=== PATIENT | female | born 1980 | race Caucasian/White ===

== ENCOUNTER 2019-08-08 18:45 | Emergency (ER) | payer OTHER ==
--- NOTE | 2019-08-08 20:55 | RAD REPORT ---
EXAM DESCRIPTION: RAD - Chest Pa And Lat (2 Views) - 08/08/2019 8:24 pm CLINICAL HISTORY: Cough;Congestion COMPARISON: No comparisons TECHNIQUE: Frontal and lateral views of the chest were obtained. FINDINGS: The lungs are normal volume. Airspace opacification is present in the anterior left lung b ase. This abuts the fissure. The lingula pneumonia shows no cavitation. Heart size is normal and garret tral vasculature is within normal limits. No pleural effusion or pneumothorax seen. No acute bony f inding noted. No aortic abnormality. IMPRESSION: Anterior left lung base pneumonia
--- NOTE | 2019-08-08 21:07 | ER ---
Nurse's Notes [facility] Name: Nelsy Joaquin Age: 39 yrs Sex: Female : 1980 Arrival Date: 08/08/2019 Time: 19:29 Bed 12 Private MD: Diagnosis: Pneumonia, unspecified organism Presentation: 08/08 19:30 Presenting complaint: Patient states: "I have been sick for 2 weeks, my kids have Flu ca1 B, my has Flu A and bronchitis. My youngest also has pneumonia. I have been having a hard time breathing and coughing really hard" Denies fever. Reports nausea. Transition of care: patient was not received from another setting of care. Onset of symptoms was August 08, 2019. Risk Assessment: Do you want to hurt yourself or someone else? Patient reports no desire to harm self or others. Initial Sepsis Screen: Does the patient meet any 2 criteria? No. Patient's initial sepsis screen is negative. Does the patient have a suspected source of infection? No. Patient's initial sepsis screen is negative. Care prior to arrival: None. 19:30 Method Of Arrival: Ambulatory ca1 19:30 Acuity: PIERCE 4 ca1 Triage Assessment: 21:30 Pain: Denies pain. 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 - Coronavirus screen:: The patient has NOT traveled to [place], [place], or [place] in the past 14 days. The patient has NOT had contact with known/suspected case of Coronavirus?. - Social history:: Smoking status: Patient denies any tobacco usage or history of. - Ebola Screening: : Patient negative for fever greater than or equal to 101.5 degrees Fahrenheit, and additional compatible Ebola Virus Disease symptoms Patient denies exposure to infectious person Patient denies travel to an Ebola-affected area in the 21 days before illness onset No symptoms or risks identified at this time. Screenin:10 Abuse screen: Denies threats or abuse. Denies injuries from another. Nutritional ca1 screening: No deficits noted. Tuberculosis screening: No symptoms or risk factors identified. Fall Risk None identified. Assessment: 20:10 General: Appears in no apparent distress. comfortable, Behavior is calm, cooperative, ca1 appropriate for age. Neuro: Level of Consciousness is awake, alert, obeys commands, Oriented to person, place, time, situation, Appropriate for age. Respiratory: Reports cough that is Airway is patent Respiratory effort is even, unlabored, Respiratory pattern is regular, symmetrical, Breath sounds are clear bilaterally. EENT: Reports nasal congestion. Derm: Skin is intact, is healthy with good turgor, Skin is pink, warm \\T\\ dry. Musculoskeletal: Circulation, motion, and sensation intact. Capillary refill < 3 seconds, Range of motion:. 21:44 Reassessment: Patient appears in no apparent distress at this time. Patient is alert, mg2 oriented x 3, equal unlabored respirations, skin warm/dry/pink. Vital Signs: 19:31 BP 159 / 81; Pulse 84; Resp 16 S; Temp 98.7(O); Pulse Ox 99% on R/A; Weight 104.33 kg ca1 (R); Height 5 ft. 1 in. (154.94 cm) (R); 21:44 BP 128 / 90; Pulse 85; Resp 18; Temp 98.2(O); Pulse Ox 100% ; mg2 19:31 Body Mass Index 43.46 (104.33 kg, 154.94 cm) ca1 ED Course: 19:29 Patient arrived in ED. ds1 19:30 Triage completed. ca1 19:31 Arm band placed on right wrist. ca1 19:39 Joy Faulkner FNP-C [facility]. kb 19:39 James Raman MD is Attending Physician. kb 20:09 Love Drake, MARIVEL is Primary Nurse. ca1 20:10 Patient has correct armband on for positive identification. Bed in low position. Call ca1 light in reach. Side rails up X 1. 20:10 No provider procedures requiring assistance completed. Patient did not have IV access ca1 during this emergency room visit. 20:23 Chest Pa And Lat (2 Views) XRAY In Process Unspecified. EDMS Administered Medications: 21:17 Drug: Zithromax 500 mg Route: PO; mg2 21:43 Follow up: Response: No adverse reaction; Medication administered at discharge. mg2 21:17 Drug: predniSONE 40 mg Route: PO; mg2 21:43 Follow up: Response: No adverse reaction; Medication administered at discharge. mg2 21:18 Drug: Albuterol - atroVENT (3:1) (2.5 mg - 0.5 mg) 3 ml Route: Nebulizer; mg2 21:44 Follow up: Response: No adverse reaction; Medication administered at discharge. mg2 21:18 Drug: Rocephin (cefTRIAXone) 1 grams Route: IM; Site: left gluteus; mg2 21:43 Follow up: Response: No adverse reaction; Medication administered at discharge. mg2 Outcome: 21:07 Discharge ordered by . clifford 21:44 Discharged to home ambulatory. mg2 21:44 Condition: stable 21:44 Discharge instructions given to patient, Instructed on discharge instructions, follow up and referral plans. Demonstrated understanding of instructions, follow-up care, medications, Prescriptions given X 3. 21:45 Patient left the ED. mg2 Signatures: Dispatcher [employer] EDMS Joy Faulkner, MENDYC JULIAN-Shereen Lilly ds1 Mikal Arriola, MARIVEL RN mg2 Love Drake RN RN ca1
--- NOTE | 2019-08-08 21:08 | EDPHYS ---
Physician Documentation [facility] Name: Nelsy Joaquin Age: 39 yrs Sex: Female : 1980 Arrival Date: 08/08/2019 Time: 19:29 Bed 12 Private MD: ED Physician James Raman HPI: 08/08 21:04 This 39 yrs old Female presents to ER via Ambulatory with complaints of Flu kb Symptoms. 21:04 The patient or guardian reports cough, that is intermittent, described as moderate, kb with productive sputum, flu symptoms, myalgias. Onset: The symptoms/episode began/occurred 2 week(s) ago. Severity of symptoms: At their worst the symptoms were moderate, in the emergency department the symptoms are unchanged. Modifying factors: The symptoms are alleviated by nothing, the symptoms are aggravated by nothing. Associated signs and symptoms: The patient has no apparent associated signs or symptoms. The patient has not experienced similar symptoms in the past. The patient has not recently seen a physician. Pt reports her kids and all have the flu at home, started going around 2 weeks ago. Pt developed the same symptoms, but let it go. Came in tonight because symptoms are not getting better. Reports her youngest son has flu B and was diagnosed with pneumonia today. 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 - Coronavirus screen:: The patient has NOT traveled to [place], [place], or [place] in the past 14 days. The patient has NOT had contact with known/suspected case of Coronavirus?. - Social history:: Smoking status: Patient denies any tobacco usage or history of. - Ebola Screening: : Patient negative for fever greater than or equal to 101.5 degrees Fahrenheit, and additional compatible Ebola Virus Disease symptoms Patient denies exposure to infectious person Patient denies travel to an Ebola-affected area in the 21 days before illness onset No symptoms or risks identified at this time. ROS: 21:03 Neck: Negative for injury, pain, and swelling, Cardiovascular: Negative for chest pain, kb palpitations, and edema, Abdomen/GI: Negative for abdominal pain, nausea, vomiting, diarrhea, and constipation, Back: Negative for injury and pain, MS/Extremity: Negative for injury and deformity, Skin: Negative for injury, rash, and discoloration, Neuro: Negative for headache, weakness, numbness, tingling, and seizure. 21:03 Constitutional: Positive for malaise. 21:03 ENT: Positive for rhinorrhea, sinus congestion. 21:03 Respiratory: Positive for cough, with no reported sputum. Exam: 21:04 Constitutional: This is a well developed, well nourished patient who is awake, alert, kb and in no acute distress. Head/Face: Normocephalic, atraumatic. ENT: Nares patent. No nasal discharge, no septal abnormalities noted. Tympanic membranes are normal and external auditory canals are clear. Oropharynx with no redness, swelling, or masses, exudates, or evidence of obstruction, uvula midline. Mucous membranes moist. Neck: Trachea midline, no thyromegaly or masses palpated, and no cervical lymphadenopathy. Supple, full range of motion without nuchal rigidity, or vertebral point tenderness. No Meningismus. Chest/axilla: Normal chest wall appearance and motion. Nontender with no deformity. No lesions are appreciated. Cardiovascular: Regular rate and rhythm with a normal S1 and S2. No gallops, murmurs, or rubs. Normal PMI, no JVD. No pulse deficits. Abdomen/GI: Soft, non-tender, with normal bowel sounds. No distension or tympany. No guarding or rebound. No evidence of tenderness throughout. Back: No spinal tenderness. No costovertebral tenderness. Full range of motion. Skin: Warm, dry with normal turgor. Normal color with no rashes, no lesions, and no evidence of cellulitis. MS/ Extremity: Pulses equal, no cyanosis. Neurovascular intact. Full, normal range of motion. Neuro: Awake and alert, GCS 15, oriented to person, place, time, and situation. Cranial nerves II-XII grossly intact. Motor strength 5/5 in all extremities. Sensory grossly intact. Cerebellar exam normal. Normal gait. 21:04 Respiratory: the patient does not display signs of respiratory distress, Respirations: normal, symetrical, Breath sounds: rhonchi, that are mild, are heard in the left posterior lower lobe. Vital Signs: 19:31 BP 159 / 81; Pulse 84; Resp 16 S; Temp 98.7(O); Pulse Ox 99% on R/A; Weight 104.33 kg ca1 (R); Height 5 ft. 1 in. (154.94 cm) (R); 21:44 BP 128 / 90; Pulse 85; Resp 18; Temp 98.2(O); Pulse Ox 100% ; mg2 19:31 Body Mass Index 43.46 (104.33 kg, 154.94 cm) ca1 MDM: 19:59 Patient medically screened. kb 20:28 Data reviewed: vital signs, nurses notes. Data interpreted: Pulse oximetry: on room air kb is 99 %. Interpretation: normal. 21:02 Counseling: I had a detailed discussion with the patient and/or guardian regarding: the kb historical points, exam findings, and any diagnostic results supporting the discharge/admit diagnosis, lab results, radiology results, the need for outpatient follow up, a family practitioner, to return to the emergency department if symptoms worsen or persist or if there are any questions or concerns that arise at home. 21:02 ED course: Pt is nontoxic appearing, no fever, no shortness of breath. Will discharge kb home with antibiotics for pneumonia. Return precautions given. Verbal understanding received. . 08/08 19:32 Order name: Flu; Complete Time: 20:00 ca1 08/08 19:32 Order name: Strep; Complete Time: 20:00 ca1 08/08 19:39 Order name: Chest Pa And Lat (2 Views) XRAY; Complete Time: 21:01 kb 08/08 20:05 Order name: Throat Culture EDMS Administered Medications: 21:17 Drug: Zithromax 500 mg Route: PO; mg2 21:43 Follow up: Response: No adverse reaction; Medication administered at discharge. mg2 21:17 Drug: predniSONE 40 mg Route: PO; mg2 21:43 Follow up: Response: No adverse reaction; Medication administered at discharge. mg2 21:18 Drug: Albuterol - atroVENT (3:1) (2.5 mg - 0.5 mg) 3 ml Route: Nebulizer; mg2 21:44 Follow up: Response: No adverse reaction; Medication administered at discharge. mg2 21:18 Drug: Rocephin (cefTRIAXone) 1 grams Route: IM; Site: left gluteus; mg2 21:43 Follow up: Response: No adverse reaction; Medication administered at discharge. mg2 Disposition: 08/09 06:42 Co-signature as Attending Physician, James Raman MD I agree with the assessment and smita plan of care. Disposition: 08/08/19 21:07 Discharged to Home. Impression: Pneumonia, unspecified organism. - Condition is Stable. - Discharge Instructions: Community-Acquired Pneumonia, Adult, [id number]. - Prescriptions for Prednisone 20 mg Oral Tablet - take 1 tablet by ORAL route once daily for 5 days; 5 tablet. Albuterol Sulfate 90 mcg/actuation - inhale 1-2 puff by INHALATION route every 4-6 hours; 1 Inhaler. Zithromax 500 mg Oral Tablet - take 1 tablet by ORAL route once daily for 5 days; 5 tablet. - Medication Reconciliation Form, Thank You Letter, Antibiotic Education, Prescription Opioid Use form. - Follow up: Emergency Department; When: As needed; Reason: Worsening of condition. Follow up: Private Physician; When: 2 - 3 days; Reason: Recheck today's complaints, Continuance of care, Re-evaluation by your physician. Signatures: Dispatcher [employer] EDMS Joy Faulkner, SEXUAL ASSAULT SOCIAL WORKER-C SEXUAL ASSAULT SOCIAL WORKER-James Gotit MD MD cha Gardose, Michele, RN RN [facility] Love Drake RN RN [facility] Corrections: (The following items were deleted from the chart) 08/08 21:45 21:07 08/08/2019 21:07 Discharged to Home. Impression: Pneumonia, unspecified organism. mg2 Condition is Stable. Forms are Medication Reconciliation Form, Thank You Letter, Antibiotic Education, Prescription Opioid Use. Follow up: Emergency Department; When: As needed; Reason: Worsening of condition. Follow up: Private Physician; When: 2 - 3 days; Reason: Recheck today's complaints, Continuance of care, Re-evaluation by your physician. kb
[2019-08-08] MEDS ORDERED: AZITHROMYCIN 250 MG TAB ONE (21:10)
[2019-08-08] MEDS ORDERED: IPRATROPIUM BROM 0.5MG/2.5ML ONE (21:11)
[2019-08-08] MEDS ORDERED: CEFTRIAXONE 1000 MG/VIAL ONE (21:11)
[2019-08-08] MEDS ORDERED: predniSONE 20 MG TAB ONE (21:11)
[2019-08-08] MEDS ORDERED: ALBUTEROL 2.5 MG/3 ML NEB SOL ONE (21:11)
[2019-08-08] MEDS ORDERED: WATER FOR INJ,STERILE 10 ML ONE (21:11)
[2019-08-08 23:07] VITALS: O2SAT 100
[2019-08-08 23:15] VITALS: BP 122/60; TEMP 98
== END 2019-08-08 21:45 | disposition home or self-care (01) ==
LOC: ER 18:45
DX: J18.9 Pneumonia, unspecified organism (principal)
CPT/HCPCS: 87070; 87081; 87804 ×2; 71046; 94640; 96372; 99284; J7512

== ENCOUNTER 2020-12-05 00:17 | Emergency (ER) | payer OTHER ==
--- OUTSIDE RECORDS SUMMARY | 2020-12-05 00:20 | XMS REPORT | Continuity of Care Document ---
:[address] [facility] t Address [address] [place] [address] Care Team Providers Name Role Phone Ji VICENTE, Alize Attending Clinician Problems This patient has no known problems. Allergies, Adverse Reactions, Alerts This patient has no known allergies or adverse reactions. Medications This patient has no known medications. Procedures This patient has no known procedures. Encounters Start End Encounter Admission Attending Care Care Encounter Source Date/Time Date/Time Type Type Clinicians Facility Department ID 2020-11-10 2020-11-10 Office J[facility] Workman [id number] 13:13:30 13:45:21 Visit [facility] [id number] [place] [id number] [place] [phone] nal 044 Office [address] [facility] Results This patient has no known results.
--- NOTE | 2020-12-05 03:45 | ER ---
Nurse's Notes [facility] Name: Nelsy Joaquin Age: 40 yrs Sex: Female : 1980 Arrival Date: 12/05/2020 Time: 00:58 Bed Waiting Private MD: Diagnosis: Presentation: 12/05 02:17 Chief complaint: Patient states: had a horse fly bit her left leg yesterday and was iw diagnosed with cellulitis at urgent care yesterday , could not get prescription filled because of her insurance, redness has spread through her entire left calf , hot to touch and swollen. Coronavirus screen: At this time, the client does not indicate any symptoms associated with coronavirus-19. Ebola Screen: Patient negative for fever greater than or equal to 101.5 degrees Fahrenheit, and additional compatible Ebola Virus Disease symptoms Patient denies exposure to infectious person. Patient denies travel to an Ebola-affected area in the 21 days before illness onset. No symptoms or risks identified at this time. Initial Sepsis Screen: Does the patient meet any 2 criteria? No. Patient's initial sepsis screen is negative. Does the patient have a suspected source of infection? No. Patient's initial sepsis screen is negative. Risk Assessment: Do you want to hurt yourself or someone else? Patient reports no desire to harm self or others. Onset of symptoms was December 04, 2020. 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 Vital Signs: 02:17 BP 165 / 99; Pulse 72; Resp 16; Temp 96.9; Pulse Ox 100% on R/A; Weight 108.86 kg; iw Height 5 ft. 1 in. (154.94 cm); 02:17 Body Mass Index 45.35 (108.86 kg, 154.94 cm) iw ED Course: 00:58 Patient arrived in ED. iw 02:19 Triage completed. iw 02:19 Arm band placed on. iw Administered Medications: No medications were administered Outcome: 03:44 Patient left the ED. iw Signatures: Trina Hernandez RN RN iw Corrections: (The following items were deleted from the chart) 02:21 02:17 Chief complaint: Patient states: had a horse fly bit her left leg yesterday and iw was diagnosed with cellulitis at urgent care yesterday , could not get prescription filled because of her insurance iw
[2020-12-05 03:53] VITALS: BP 165/99; TEMP 96.9; O2SAT 100
== END 2020-12-05 03:44 | disposition left against medical advice (07) ==
LOC: ER 00:17
DX: L03.116 Cellulitis of left lower limb (principal); F17.210 Nicotine dependence, cigarettes, uncomplicated; F32.9 Major depressive disorder, single episode, unspecified; F41.9 Anxiety disorder, unspecified; Z53.21 Procedure and treatment not carried out due to patient leaving prior to being seen by health care provider
CPT/HCPCS: 99281

== ENCOUNTER 2025-03-26 10:34 | Emergency (ER) | payer OTHER, SELFPAY ==
--- OUTSIDE RECORDS SUMMARY | 2025-03-26 10:38 | XMS REPORT | Continuity of Care Document ---
Author Name Unknown Address [address] [facility] [address] [place] [address] [facility] Address [address] [facility] [place] [address] Care Team Providers Care Application Support Engineer Name Role Phone ALLY FANG Primary Care Physician Unavailable ALLY FANG Attending Clinician Sparkle curryilaAlly Way MD Attending Clinician Doctor Unassigned, Ivey Attending Clinician U navailANABEL Martin Attending Clinician Unavaila ANABEL Al Attending Clinician Unavaila ble Lab, Ang - Db Attending Clinician Unavailable KATALINA BENITO Attending Clinician Unavailable NEIL HUGHES Attending Clinician UnavailNeil Martinez MD Attending Clinician + [phone] [facility] Attending Clinician Un available Choco Hope Attending Clinician + [phone] CHOCO SHELLEY Attending Clinician Unavailab Maryanne Colindres Attending Clinician + Katalina Benito PA-C Attending Clinician [phone] TENISHA MILNER Attending Clinician Unavailable Pob, Adc Lab Main Attending Clinician Unavailabl e Lab, Adc Fam Pob I Attending Clinician UnavailALLY Santoro Admitting Clinician Sparkle vailable Payers Payer Name Policy Type Policy Number Effective Date Expirati on Date Source [facility] [id number] 2023 00:00:00 [facility] STAR [id number] 2022 00:00:00 [facility] SARAH SPRINGER [id number] 2020 00:00:00 Problems Condition Name Condition Details Condition Category Status Onset Date Resolution Date Last Treatment Date Treating Clinician Comments Source Insect bite of right lower leg, initial encounter Insect bite of right lower leg, initial encounter Disease Active 12-04 00:00: 00 [facility] Cellulitis and abscess of left lower extremity Cellulitis and abscess of left lower extremity Disease Active 12-04 00:00: 00 [facility] Metabolic syndrome Metabolic syndrome Disease Active 10-07 00:00: 00 [facility] Chronic fatigue Chronic fatigue Disease Active 2019-07 00:00: 00 [facility] Chronic anxiety Chronic anxiety Disease Active 2019-07 00:00: 00 [facility] Chronic depression Chronic depression Disease Active 2019-07 00:00: 00 [facility] Morbid obesity with body mass index of 40.0-49.9 Morbid obesity with body mass index of 40.0-49.9 Disease Active 2019-07 00:00: 00 [facility] Morbid obesity with body mass index of 40.0-49.9 Morbid obesity with body mass index of 40.0-49.9 Disease Active 2019-07 00:00: 00 [facility] Allergies, Adverse Reactions, Alerts Allergy Name Allergy Type Status Severity Reaction(s) Onset Date Inactive Date Treating Clinician Comments Source NO KNOWN ALLERGIE S Drug Class Active [facility] Social History Social Habit Start Date Stop Date Quantity Comments Source History of tobacco use Cigarette Smoker [facility] Alcohol intake 2022-09-28 00:00:00 2022-09-28 00:00:00 .14 /d [facility] Exposure to SARS-CoV-2 (event) 2022-08-13 00:00:00 2022-08-23 11:23:00 Not sure [facility] Cigarettes smoked current (pack per day) - Reported 2022-08-23 00:00:00 2022-08-23 00:00:00 [facility] Tobacco use and exposure 2022-08-23 00:00:00 2022-08-23 00:00:00 Smokeless tobacco non-user [facility] Tobacco Comment 2022-08-23 00:00:00 2022-08-23 00:00:00 socially [facility] Sex Assigned At 1980 00:00:00 1980 00:00:00 [facility] Smoking Status Start Date Stop Date Source Unknown if ever smoked Unive [facility] Ex-smoker 2022-08-23 00:00:00 2022-08[facility] Current some day smoker 2020-05-20 00:00:00 [facility] Medications Ordered Medication Name Filled Medication Name Start Date Stop Date Current Medication? Ordering Clinician Indication Dosage Frequency Signature (SIG) Comments Components Source ferrous sulfate 325 mg (65 mg iron) tablet 09-05 00:00: 00 Yes [id number] 325mg Take 1 tablet by mouth in the morning. [facility] ferrous sulfate 325 mg (65 mg iron) tablet 08-25 00:00: 00 Yes [id number] 325mg Take 1 tablet by mouth in the morning. [facility] calcium carbonate/v itamin D3 (CALCIUM CHEW ORAL) 08-23 11:54: 54 Yes Take by mouth daily. [facility] MULTIVITAMI N ORAL 08-23 11:54: 53 Yes 1{tbl} Take 1 tablet by mouth daily. [facility] METFORMIN 500 mg tablet 12-31 00:00: 00 08-23 00:00 :00 No [id number] TAKE 1 TABLET BY MOUTH TWICE DAILY WITH MEALS [facility] buPROPion 100 mg tablet 12-31 00:00: 00 08-23 00:00 :00 No [id number] 100mg Take 1 tablet by mouth daily. [facility] FLUOXETINE 20 mg capsule 12-31 00:00: 00 08-23 00:00 :00 No [id number] 20mg TAKE 1 CAPSULE BY MOUTH DAILY [facility] clindamycin 300 mg capsule 12-05 00:00: 00 12-13 04:59 :00 No [id number] 300mg Take 1 capsule by mouth 4 (four) times daily for 7 days. [facility] doxycycline 100 mg EC tablet 12-04 00:00: 00 12-05 00:00 :00 No [id number] 100mg Take 1 tablet by mouth 2 (two) times daily for 10 days. [facility] buPROPion 100 mg tablet 11-10 00:00: 00 12-31 00:00 :00 No [id number] 100mg Take 1 tablet by mouth daily. [facility] FLUoxetine 20 mg capsule 11-10 00:00: 12-31 00:00 :00 No [id number] 20mg Take 1 capsule by mouth daily. [facility] triamcinolo ne acetonide 0.1 % ointment 09-29 00:00: 00 08-23 00:00 :00 No [id number] Apply to area(s) 2 (two) times daily. [facility] metFORMIN 500 mg tablet 09-29 00:00: 00 12-31 00:00 :00 No [id number] 500mg Take 1 tablet by mouth 2 (two) times daily with meals. [facility] buPROPion 100 mg tablet 09-29 00:00: 00 11-10 00:00 :00 No [id number] 100mg Take 1 tablet by mouth 2 (two) times daily. [facility] FLUoxetine 20 mg capsule 09-29 00:00: 00 11-10 00:00 :00 No [id number] 20mg Take 1 capsule by mouth daily. DOSE INCREASE. [facility] FLUOXETINE 10 mg capsule 09-07 00:00: 00 09-29 00:00 :00 No [id number] 10mg TAKE 1 CAPSULE BY MOUTH DAILY [facility] norgestimat e-ethinyl estradioL 0.25-35 mg-mcg per tablet 08-06 00:00: 00 08-23 00:00 :00 No [id number] 1{tbl} Take 1 tablet by mouth daily. [facility] FLUoxetine 10 mg capsule 2019-07 00:00: 00 09-07 00:00 :00 No [id number] 10mg Take 1 capsule by mouth daily. [facility] norgestimat e-ethinyl estradioL 0.25-35 mg-mcg per tablet 2019-07 00:00: 00 08-06 00:00 :00 No [id number] 1{tbl} Take 1 tablet by mouth daily. [facility] Vital Signs Vital Name Observation Time Observation Value Comments S venancio Systolic blood pressure 2022-08-23 17:40:00 125 mm[Hg] [facility] Diastolic blood pressure 2022-08-23 17:40:00 84 mm[Hg] [facility] Heart rate 2022-08-23 17:40:00 54 /min [facility] Body temperature 2022-08-23 17:40:00 36.72 Violeta [facility] Respiratory rate 2022-08-23 17:40:00 20 /min [facility] Body height 2022-08-23 17:40:00 154.9 cm [facility] Body weight 2022-08-23 17:40:00 95.437 kg [facility] BMI 2022-08-23 17:40:00 39.75 kg/m2 [facility] Oxygen saturation in Arterial blood by Pulse oximetry 2022-08-23 17:40:00 100 /min [facility] Systolic blood pressure 2020-12-04 22:07:00 141 mm[Hg] [facility] Diastolic blood pressure 2020-12-04 22:07:00 88 mm[Hg] [facility] Heart rate 2020-12-04 22:04:00 75 /min [facility] Body temperature 2020-12-04 22:04:00 37 Violeta [facility] Respiratory rate 2020-12-04 22:04:00 17 /min [facility] Body height 2020-12-04 22:04:00 154.9 cm [facility] Body weight 2020-12-04 22:04:00 108.863 kg [facility] BMI 2020-12-04 22:04:00 45.35 kg/m2 [facility] Oxygen saturation in Arterial blood by Pulse oximetry 2020-12-04 22:04:00 98 /min [facility] Systolic blood pressure 2020-11-10 18:23:00 134 mm[Hg] [facility] Diastolic blood pressure 2020-11-10 18:23:00 80 mm[Hg] [facility] Heart rate 2020-11-10 18:23:00 63 /min Unive [facility] Body temperature 2020-11-10 18:23:00 37.06 Violeta [facility] Body height 2020-11-10 18:23:00 154.9 cm [facility] Body weight 2020-11-10 18:23:00 110.224 kg [facility] BMI 2020-11-10 18:23:00 45.91 kg/m2 [facility] Systolic blood pressure 2020-11-10 18:23:00 134 mm[Hg] [facility] Diastolic blood pressure 2020-11-10 18:23:00 80 mm[Hg] [facility] Heart rate 2020-11-10 18:23:00 63 /min Unive [facility] Body temperature 2020-11-10 18:23:00 37.06 Violeta [facility] Body height 2020-11-10 18:23:00 154.9 cm [facility] Body weight 2020-11-10 18:23:00 110.224 kg [facility] BMI 2020-11-10 18:23:00 45.91 kg/m2 [facility] Systolic blood pressure 2020-09-29 19:16:00 127 mm[Hg] [facility] Diastolic blood pressure 2020-09-29 19:16:00 81 mm[Hg] [facility] Heart rate 2020-09-29 19:16:00 62 /min [facility] Body temperature 2020-09-29 19:16:00 36.67 Violeta [facility] Body height 2020-09-29 19:16:00 154.9 cm [facility] Body weight 2020-09-29 19:16:00 112.038 kg [facility] BMI 2020-09-29 19:16:00 46.67 kg/m2 [facility] Systolic blood pressure 2020-06-10 03:16:00 146 mm[Hg] [facility] Diastolic blood pressure 2020-06-10 03:16:00 77 mm[Hg] [facility] Heart rate 2020-06-10 03:16:00 68 /min [facility] Body temperature 2020-06-10 03:16:00 36.11 Violeta [facility] Body height 2020-06-10 03:16:00 154.9 cm [facility] Body weight 2020-06-10 03:16:00 108.863 kg [facility] BMI 2020-06-10 03:16:00 45.35 kg/m2 [facility] Systolic blood pressure 2020-06-09 16:27:00 150 mm[Hg] [facility] Diastolic blood pressure 2020-06-09 16:27:00 77 mm[Hg] [facility] Heart rate 2020-06-09 16:27:00 67 /min Unive [facility] Body temperature 2020-06-09 16:17:00 36.11 Violeta [facility] Body weight 2020-06-09 16:17:00 108.863 kg [facility] BMI 2020-06-09 16:17:00 45.35 kg/m2 [facility] Systolic blood pressure 2020-05-20 15:17:00 125 mm[Hg] [facility] Diastolic blood pressure 2020-05-20 15:17:00 67 mm[Hg] [facility] Heart rate 2020-05-20 15:17:00 63 /min [facility] Body temperature 2020-05-20 15:17:00 37.11 Violeta [facility] Respiratory rate 2020-05-20 15:17:00 18 /min [facility] Body height 2020-05-20 15:17:00 154.9 cm [facility] Body weight 2020-05-20 15:17:00 107.593 kg [facility] BMI 2020-05-20 15:17:00 44.82 kg/m2 [facility] Procedures Procedure Date / Time Performed Performing Clinicia n Source ASSIGNMENT OF BENEFITS 2022-09-28 13:27:56 Docto r Unassigned, Ivey [facility] CONSENT/REFUSAL FOR DIAGNOSIS AND TREATMENT 2022-08-23 17:24:14 Doctor Unassigned, Ivey [facility] ASSIGNMENT OF BENEFITS 2020-05-20 14:59:17 Docto r Unassigned, Ivey [facility] POCT TEST 2020-05-20 00:00:00 Hellen Benito [facility] Encounters Start Date/Time End Date/Time Encounter Type Admission Type Attending Clinicians Care Facility Care Department Encounter ID Source 2024-07-17 16:18:33 2024-07-17 16:18:33 Outpatient [facility] [id number] Norman Duque 2024-02-07 09:40:00 2024-02-07 09:40:00 Outpatient R ALLY FANG [facility] [id number] [facility] 2024-02-01 10:20:00 2024-02-01 10:20:00 Outpatient R ALLY FANG [facility] [id number] [facility] 2022-09-28 08:29:25 2022-09-28 23:59:00 Outpatient R ALLY FANG [facility] [id number] [facility] 2022-09-28 08:29:25 2022-09-28 23:59:00 Hospital Encounter Ally Fang [facility] [id number] 350.1.13.10 4.2.7.2.686 [id number] [facility] 2022-09-28 00:00:00 2022-09-28 00:00:00 Orders Only Doctor Unassigned, Ivey [facility] 1.2840.114 350.1.13.10 4.2.7.2.686 [id number] [facility] 2022-09-05 00:00:00 2022-09-05 00:00:00 Telephone Ally Fang [facility] 1.84.114 350.1.13.10 4.2.7.2.686 [id number] [facility] 2022-08-25 00:00:00 2022-08-25 00:00:00 Case Management Ally Fang [facility] 1.840.114 350.1.13.10 4.2.7.2.686 [id number] [facility] 2022-08-23 12:15:00 2022-08-23 12:15:00 Orthotic And Prosthetic Technician Visit Lab, Ang - Db Ally Fang [facility] 1..840.114 350.1.13.10 4.2.7.2.686 [id number] [facility] 2022-08-23 11:30:00 2022-08-23 11:58:29 Outpatient R ALLY FANG [facility] [id number] [facility] 2022-08-23 11:30:00 2022-08-23 11:58:29 Office Visit Ally Fang [facility] 1.2840.114 350.1.13.10 4.2.7.2.686 [id number] [facility] 2022-08-23 00:00:00 2022-08-23 00:00:00 Orders Only Doctor Unassigned, Ivey [facility] 1.84.114 350.1.13.10 4.2.7.2.686 [id number] [facility] 2021-05-20 10:00:00 2021-05-20 10:00:00 Outpatient R THONG KATALINA [facility] [id number] [facility] 2021-02-11 13:15:00 2021-02-11 13:15:00 Outpatient R NEIL HUGHES [facility] [id number] [facility] 2020-12-30 00:00:00 2020-12-30 00:00[facility] .84.114 350.1.13.10 4.2.7.2.686 [id number] [facility] 2020-12-30 00:00:00 2020-12-30 00:00:00 [facility] 1.84.114 350.1.13.10 4.2.7.2.686 [id number] [facility] 2020-12-04 16:47:32 2020-12-04 18:47:29 Urgent Care Provider, [facility] Choco Shelley [facility] .84.114 350.1.13.10 4.2.7.2.686 [id number] [facility] 2020-12-04 17:00:00 2020-12-04 17:00:00 Outpatient CHOCO CASTRO [facility] [id number] [facility] 2020-12-04 00:00:00 2020-12-04 00:00:00 Telephone Maryanne Christianson [facility] 1.84.114 350.1.13.10 4.2.7.2.686 [id number] [facility] 2020-12-04 00:00:00 2020-12-04 00:00:00 Telephone Maryanne Christianson [facility] Carbajal 1.2.840.114 350.1.13.10 4.2.7.2.686 [id number] [facility] 2020-11-10 13:13:30 2020-11-10 13:45:21 [facility] 1.84.114 350.1.13.10 4.2.7.2.686 [id number] [facility] 2020-11-10 13:13:30 2020-11-10 13:45:21 Office Visit Neil Hughes [facility] [address] 1..114 350.1.13.10 4.2.7.2.686 [id number] 2020-11-10 13:15:00 2020-11-10 13:15:00 Outpatient R SAULKEISHA HANSONCRISTI [facility] [id number] [facility] 2020-10-05 00:00:00 2020-10-05 00:00:00 Katailna Mac [facility] Building 1.2840.114 350.1.13.10 4.2.7.2.686 [id number] [facility] 2020-09-29 13:53:32 2020-09-29 15:04:31 Office Visit Neil Hughes [facility] 1.2840.114 350.1.13.10 4.2.7.2.686 [id number] [facility] 2020-09-29 14:00:00 2020-09-29 14:00:00 Outpatient R NEIL HUGHES [facility] [id number] [facility] 2020-09-28 14:00:00 2020-09-28 14:00:00 Outpatient R KATALINA BENITO [facility] [id number] [facility] 2020-09-22 18:00:00 2020-09-22 18:00:00 Outpatient R TENISHA MILNER [facility] [id number] [facility] 2020-09-17 11:00:00 2020-09-17 11:00:00 Outpatient R THONG KATALINA [facility] [id number] [facility] 2020-09-07 00:00:00 2020-09-07 00:00:00 Refill Neil Hughes [facility] 1.2.840.114 350.1.13.10 4.2.7.2.686 [id number] [facility] 2020-08-06 00:00:00 2020-08-06 00:00:00 Telephone ThongKatalina [facility] Building 1.2.840.114 350.1.13.10 4.2.7.2.686 [id number] [facility] 2020-07-20 13:00:00 2020-07-20 13:00:00 Outpatient R NEIL HUGHES [facility] [id number] [facility] 2020-06-20 08:13:09 2020-06-20 08:28:09 Orthotic And Prosthetic Technician Visit Pob, Adc Lab Main Neil Hughes [facility] Building 1.2.840.114 350.1.13.10 4.2.7.2.686 [id number] [facility] 2020-06-20 08:00:00 2020-06-20 08:00:00 Outpatient NEIL BROWNING [facility] [id number] [facility] 2020-06-13 09:00:00 2020-06-13 09:00:00 Outpatient R NEIL HUGHES [facility] [id number] [facility] 2020-06-09 10:53:00 2020-06-09 11:06:46 Office Visit Neil Hughes [facility] [address] 1.20.114 350.1.13.10 4.2.7.2.686 [id number] [facility] 2020-06-09 10:05:44 2020-06-09 11:05:10 Office Visit Neil Hughes [facility] 1..114 350.1.13.10 4.2.7.2.686 [id number] [facility] 2020-06-09 10:06:24 2020-06-09 10:26:24 Orthotic And Prosthetic Technician Visit Lab, Adc Fam Pob I Neil Hughes [facility] [address] 1..114 350.1.13.10 4.2.7.2.686 [id number] [facility] 2020-06-09 10:00:00 2020-06-09 10:00:00 Outpatient R NEIL HUGHES [facility] [id number] [facility] 2020-05-26 00:00:00 2020-05-26 00:00:00 Telephone VenancioKatalina broussard [facility] Building 1..114 350.1.13.10 4.2.7.2.686 [id number] [facility] 2020-05-20 09:03:00 2020-05-20 10:07:35 Office Visit Katalina Benito [facility] Building 1.20.114 350.1.13.10 4.2.7.2.686 [id number] [facility] 2020-05-20 08:30:00 2020-05-20 08:30:00 Outpatient Juvencio ESQUIVELKATALINA BROUSSARD [facility] [id number] [facility] 2020-05-20 00:00:00 2020-05-20 00:00:00 Orders Only Doctor Unassigned, Ivey [facility] 1.2.840.114 350.1.13.10 4.2.7.2.686 [id number] [facility] Results Test Description Test Time Test Comments Results Result Co mments [id number]:59[facility]00* Test Item Value Reference Range Interpretation Comme nts POCT PREG (test code = 1605) Negative On board controls acceptable with C Line (test code = 3574) Yes POCT PREG LOT # (test code = 3575) POCT PREG TEST DATE ( test code = 3576) [facility]
[2025-03-26] MEDS ORDERED: HYDRALAZINE HCL 20 MG/ML VIAL ONE (10:51)
[2025-03-26 11:03] LABS: Absolute Lymphocytes (CBC) 1.5 K/uL (0.7-4.9); Hematocrit 28.5 % (36.0-45.0); Hemoglobin 8.8 g/dL (12.0-15.0); MCH 20.8 pg (27.0-35.0); MCHC 31.0 g/dL (32.0-36.0); MCV 67.2 fL (80-100); MPV 7.1 fL (7.6-11.3); Nucleated RBC Absolute Count 0.0 (0-0); Nucleated Red Blood Cells % 0.0 % (0-0); RBC Red Blood Cell Count 4.24 M/uL (3.86-4.86); White Blood Count 5.30 thou/uL (4.3-10.9)
[2025-03-26 11:09] LABS: PT Prothrombin Time 11.6 SECONDS (10-13.0); Protime INR 1.03
[2025-03-26 11:23] LABS: ALT/SGPT 24 U/L (13-56); AST/SGOT 14 U/L (15-37); Albumin 3.6 g/dL (3.4-5.0); Albumin/Globulin Ratio 1.0 (1.1-1.8); Alkaline Phosphatase 60 U/L (45-117); Anion Gap 10.2 mEq/L (5.0-15.0); BUN Blood Urea Nitrogen 11 mg/dL (7-18); Globulin 3.6 g/dL (2.3-3.5); Glucose Level 96 mg/dL (74-106); Magnesium 2.2 mg/dL (1.6-2.4); NT PRO-BNP 200 pg/mL (<125); Potassium 3.2 mEq/L (3.5-5.1); Troponin High Sensitivity 3.8 pg/mL (<58.9)
[2025-03-26 11:25] LABS: Bilirubin Indirect, Calculated 0.1 mg/dL (0.2-0.8)
--- NOTE | 2025-03-26 11:34 | RAD REPORT ---
EXAMINATION: ONE VIEW CHEST XR CLINICAL INDICATION: Female, 44 years old.,near syncope, HTN urgency TECHNIQUE: Frontal chest projection is submitted. Examination is limited by patient positioning and t echnique. COMPARISON: 08/08/2019 FINDINGS: The lungs are well inflated and clear. No pneumothorax or sizable effusion. The heart is normal in s ize. Mediastinal contours are unremarkable. IMPRESSION: No acute intrathoracic abnormalities.
--- NOTE | 2025-03-26 11:42 | RAD REPORT ---
EXAM: CT Head Brain Wo Cont HISTORY: HTN urgency COMPARISON: None TECHNIQUE: Multiple contiguous axial images were obtained for a CT of the brain without contrast. Sag ittal and coronal reformats were performed. One or more of the following dose reduction techniques were used: Automated exposure control, adjus tment of the mA and kV according to patient size, and iterative reconstruction. Unless otherwise specified, incidental findings do not require dedicated imaging follow-up. FINDINGS: No evidence of hydrocephalus, intracranial hemorrhage, or extra-axial fluid collection. The brain is normal in morphology. The calvarium is intact. The visualized paranasal sinuses and mastoid air cells are essentially clear . IMPRESSION: No evidence of acute intracranial abnormality.
[2025-03-26 11:57] LABS: Blood Morphology Comment NOTED (NOT SEEN); White Blood Cell Scan OK (OK)
[2025-03-26 11:58] LABS: Anisocytosis 1+; Hypochromasia 1+; Microcytosis 1+; Ovalocytes SLIGHT
[2025-03-26] MEDS ORDERED: KETOROLAC 30 MG/ML INJ ONE (12:24)
--- NOTE | 2025-03-26 12:30 | ER ---
Nurse's Notes [facility] Name: Nelsy Joaquin Age: 44 yrs Sex: Female : 1980 Arrival Date: 03/26/2025 Time: 10:34 Bed 8 Private MD: Diagnosis: Essential hypertension, hypertensive urgency Presentation: 03/26 10:50 Chief complaint: Patient states: BP has been running high all week, not on meds yet , iw today it was even higher and she is having tingling to her feet and her lips. Coronavirus screen: At this time, the client does not indicate any symptoms associated with coronavirus-19. Ebola Screen: No symptoms or risks identified at this time. Initial Sepsis Screen: Does the patient meet any 2 criteria? No. Patient's initial sepsis screen is negative. Does the patient have a suspected source of infection? No. Patient's initial sepsis screen is negative. Risk Assessment: Do you want to hurt yourself or someone else? Patient reports no desire to harm self or others. Onset of symptoms was March 26, 2025. 10:50 Method Of Arrival: Ambulatory iw 10:50 Acuity: PIERCE 2 iw Historical: - Allergies: 10:50 No Known Allergies; iw - PMHx: 10:50 Anxiety; Depression; iw - Immunization history:: Adult Immunizations unknown. - Infectious Disease History:: Denies. - Social history:: Smoking status: unknown. Screenin:09 [facility] ED Fall Risk Assessment (Adult) History of falling in the last 3 months, db including since admission No falls in past 3 months (0 pts) Confusion or Disorientation No (0 pts) Intoxicated or Sedated No (0 pts) Impaired Gait No (0 pts) Mobility Assist Device Used No (0 pt) Altered Elimination No (0 pt) Score/Fall Risk Level 0 - 2 = Low Risk Oriented to surroundings, Maintained a safe environment. Abuse screen: Denies threats or abuse. Denies injuries from another. Nutritional screening: No deficits noted. Tuberculosis screening: No symptoms or risk factors identified. Assessment: 11:08 Reassessment: Patient appears in no apparent distress at this time. Patient and/or db family updated on plan of care and expected duration. Pain level reassessed. Patient is alert, oriented x 3, equal unlabored respirations, skin warm/dry/pink. General: Appears in no apparent distress. comfortable, Behavior is calm, cooperative. Pain: Denies pain. Neuro: Level of Consciousness is awake, alert, obeys commands, Oriented to person, place, time, situation. Cardiovascular: Reports blurred vision and high bp. Respiratory: Airway is patent Respiratory effort is even, unlabored, Respiratory pattern is regular, symmetrical. 12:28 Reassessment: Patient appears in no apparent distress at this time. Patient and/or db family updated on plan of care and expected duration. Pain level reassessed. Patient is alert, oriented x 3, equal unlabored respirations, skin warm/dry/pink. Patient states feeling better. Patient states symptoms have improved. Vital Signs: 10:49 BP 196 / 95; Pulse 65; Resp 16; Pulse Ox 100% on R/A; Weight 77.11 kg; Height 5 ft. 1 iw in. ; 12:12 BP 156 / 92; Pulse 68; Resp 16; Pulse Ox 100% on R/A; db 12:30 BP 163 / 90; Pulse 63; Resp 16; Pulse Ox 100% ; db 10:49 Body Mass Index 32.12 (77.11 kg, 154.94 cm) iw ED Course: 10:37 Patient arrived in ED. cj3 10:38 Lina Morales MD is Attending Physician. sp3 10:40 Kamran Mao, RN is Primary Nurse. bp 10:51 Triage completed. iw 10:51 Arm band placed on. iw 10:58 Initial lab(s) drawn, by me, sent to lab. Inserted saline lock: 20 gauge in right bp forearm, using aseptic technique. Blood collected. Flushed with 10 mL NS. 11:[address] via wheelchair. db 11:05 EKG done, reviewed by Lina Morales MD. db 11:19 CT Head Brain wo Cont In Process Unspecified. EDMS 11:19 XRAY Chest (1 view) In Process Unspecified. EDMS 12:16 Patient has correct armband on for positive identification. Bed in low position. Call db light in reach. Side rails up X 1. Client placed on continuous cardiac and pulse oximetry monitoring. NIBP monitoring applied. water server on. Pulse ox on. NIBP on. Warm blanket given. Pillow given. 12:44 Provided Education on: DISCHARGE AND FOLLOWUP. db 12:44 No provider procedures requiring assistance completed. IV discontinued, intact, db bleeding controlled, No redness/swelling at site. Administered Medications: 11:03 Drug: hydrALAZINE IVP 10 mg IVP once Route: IVP; Site: right antecubital; db 12:45 Follow up: Response: Blood pressure is lowered db 12:28 Drug: Ketorolac IVP 30 mg IVP once Route: IVP; Site: right antecubital; db 12:45 Follow up: Response: No adverse reaction; Pain is decreased db Medication: 12:16 VIS not applicable for this client. db Outcome: 12:29 Discharge ordered by MD. buchanan 12:44 Discharged to home ambulatory, with family, db 12:44 Condition: stable 12:44 Discharge instructions given to patient, Instructed on discharge instructions, follow up and referral plans. 12:45 Patient left the ED. db Signatures: Dispatcher [employer] Trina Manriquez RN RN iw Peltier, Brian, RN RN bp Patel, Setul, MD MD sp3 Faviola Martinez RN RN db Johnson, Celeste 3
--- NOTE | 2025-03-26 12:30 | EDPHYS ---
Physician Documentation [facility] Name: Nelsy Joaquin Age: 44 yrs Sex: Female : 1980 Arrival Date: 03/26/2025 Time: 10:34 Bed 8 Private MD: ED Physician Lina Morales HPI: 03/26 11:04 This 44 yrs old Female presents to ER via Ambulatory with complaints of High Blood sp3 Pressure, Numbness Of Lips, Blurred Vision, Numbness - FEET. 11:04 44-year-old female with history of anxiety and no history of hypertension currently sp3 being worked up by PCP with blood pressure log for possibility of starting medications, presents to the ED with chief complaint high blood pressure at home into the 200s systolic range, perioral numbness and extremity tingling along with shortness of breath and mild anxiety. Patient denies any chest pain, back pain (other than her chronic back pain), abdominal pain, vomiting, diarrhea, , syncope, trauma, recreational drug use, or any other signs or symptoms on ROS at this time.. Historical: - Allergies: 10:50 No Known Allergies; iw - PMHx: 10:50 Anxiety; Depression; iw - Immunization history:: Adult Immunizations unknown. - Infectious Disease History:: Denies. - Social history:: Smoking status: unknown. ROS: 11:07 Constitutional: Negative for fever, chills, and weight loss, Eyes: Negative for injury, sp3 pain, redness, and discharge, Neck: Negative for injury, pain, and swelling, Respiratory: Negative for shortness of breath, cough, wheezing, and pleuritic chest pain, Abdomen/GI: Negative for abdominal pain, nausea, vomiting, diarrhea, and constipation, Back: Negative for injury and pain, : Negative for injury, bleeding, discharge, and swelling, MS/Extremity: Negative for injury and deformity, Skin: Negative for injury, rash, and discoloration, Psych: Negative for depression, anxiety, suicide ideation, homicidal ideation, and hallucinations, Allergy/Immunology: Negative for hives, rash, and allergies, Endocrine: Negative for neck swelling, polydipsia, polyuria, polyphagia, and marked weight changes, Hematologic/Lymphatic: Negative for swollen nodes, abnormal bleeding, and unusual bruising, 11:07 All other systems are negative, Exam: 11:07 Constitutional: This is a well developed, well nourished patient who is awake, alert, sp3 and in no acute distress. Head/Face: Normocephalic, atraumatic. Eyes: Pupils equal round and reactive to light, extra-ocular motions intact. Lids and lashes normal. Conjunctiva and sclera are non-icteric and not injected. Cornea within normal limits. Periorbital areas with no swelling, redness, or edema. ENT: Nares patent. No nasal discharge, no septal abnormalities noted. External auditory canals are clear. Oropharynx with no redness, swelling, or masses, exudates, or evidence of obstruction, uvula midline. Mucous membranes moist. Neck: Trachea midline, no thyromegaly or masses palpated, and no cervical lymphadenopathy. Supple, full range of motion without nuchal rigidity, or vertebral point tenderness. No Meningismus. Chest/axilla: Normal chest wall appearance and motion. Nontender with no deformity. No lesions are appreciated. Cardiovascular: Regular rate and rhythm with a normal S1 and S2. No gallops, murmurs, or rubs. Normal PMI, no JVD. No pulse deficits. Respiratory: Lungs have equal breath sounds bilaterally, clear to auscultation and percussion. No rales, rhonchi or wheezes noted. No increased work of breathing, no retractions or nasal flaring. Abdomen/GI: Soft, non-tender, with normal bowel sounds. No distension or tympany. No guarding or rebound. No evidence of tenderness throughout. Back: No spinal tenderness. No costovertebral tenderness. Full range of motion. Skin: Warm, dry with normal turgor. Normal color with no rashes, no lesions, and no evidence of cellulitis. MS/ Extremity: Pulses equal, no cyanosis. Neurovascular intact. Full, normal range of motion. Neuro: Awake and alert, GCS 15, oriented to person, place, time, and situation. Cranial nerves II-XII grossly intact. Motor strength 5/5 in all extremities. Sensory grossly intact. Cerebellar exam normal. Normal gait. Psych: Awake, alert, with orientation to person, place and time. Behavior, mood, and affect are within normal limits. 11:07 Neuro: Normal neurological exam. Blood pressure in the 200s systolic range bilaterally., 11:09 ECG was reviewed by the Attending Physician. EKG demonstrates normal sinus rhythm at 67 sp3 bpm with normal intervals, normal QRS, normal axis normal ST/T segments without evidence of acute ischemia. Vital Signs: 10:49 BP 196 / 95; Pulse 65; Resp 16; Pulse Ox 100% on R/A; Weight 77.11 kg; Height 5 ft. 1 iw in. ; 12:12 BP 156 / 92; Pulse 68; Resp 16; Pulse Ox 100% on R/A; db 12:30 BP 163 / 90; Pulse 63; Resp 16; Pulse Ox 100% ; db 10:49 Body Mass Index 32.12 (77.11 kg, 154.94 cm) iw MDM: 10:38 Medical Screening Exam initiated sp3 11:08 Data reviewed: vital signs, nurses notes, old medical records, lab test result(s), EKG, sp3 radiologic studies. ED course: 44-year-old female with hypertension and anxiety symptoms coupled with extremity tingling. Differential diagnosis includes idiopathic hypertension, hypertensive urgency, hypertensive emergency, anxiety, among others. I am not highly suspicious of endorgan injury including ICH, acute coronary syndrome, renal failure or any other pathway at this time. Workup will include CT scan of the head, chest x-ray, EKG, general labs and general supportive care. Hydralazine 10 mg IV will be given x 1. Beta-lesia is indicated given heart rate. Disposition pending workup and patient course.. 12:24 ED course: Patient blood pressures come down and she feels better. Anemia of 8.8 is sp3 chronic and being treated outpatient. Patient has an MRI appointment for her neck and thoracic spine tomorrow due to her chronic 2 years of back pain. She did ask for some pain medication before discharge which we will give ketorolac. I am not highly suspicious of AAA or other vascular pathology. She is going to keep her appointment tomorrow.. 03/26 10:47 Order name: Basic Metabolic Panel; Complete Time: 11:56 sp3 03/26 10:47 Order name: CBC with Diff; Complete Time: 12:18 sp3 03/26 10:47 Order name: LFT's; Complete Time: 11:56 sp3 03/26 10:47 Order name: Magnesium; Complete Time: 11:56 sp3 03/26 10:47 Order name: NT PRO-BNP; Complete Time: 11:56 sp3 03/26 10:47 Order name: PT-INR sp3 03/26 10:47 Order name: Troponin HS; Complete Time: 11:56 sp3 03/26 11:19 Order name: CBC Smear Scan; Complete Time: 12:18 EDMS 03/26 10:47 Order name: XRAY Chest (1 view); Complete Time: 11:56 sp3 03/26 10:47 Order name: CT Head Brain wo Cont; Complete Time: 11:56 sp3 03/26 10:47 Order name: Cardiac monitoring; Complete Time: 10:58 sp3 03/26 10:47 Order name: EKG - Nurse/Tech; Complete Time: 11:08 sp3 03/26 10:47 Order name: IV Saline Lock; Complete Time: 10:58 sp3 03/26 10:47 Order name: Labs collected and sent; Complete Time: 10:58 sp3 03/26 10:47 Order name: O2 Per Protocol; Complete Time: 10:58 sp3 03/26 10:47 Order name: O2 Sat Monitoring; Complete Time: 10:58 sp3 Administered Medications: 11:03 Drug: hydrALAZINE IVP 10 mg IVP once Route: IVP; Site: right antecubital; db 12:45 Follow up: Response: Blood pressure is lowered db 12:28 Drug: Ketorolac IVP 30 mg IVP once Route: IVP; Site: right antecubital; db 12:45 Follow up: Response: No adverse reaction; Pain is decreased db Disposition Summary: 03/26/25 12:29 Discharge Ordered Notes: Location: Home sp3 Condition: Stable sp3 Diagnosis - Essential hypertension, hypertensive urgency sp3 Followup: sp3 - With: Private Physician - When: Upon discharge from the Emergency Department - Reason: Continuance of care Discharge Instructions: - Managing Your Hypertension sp3 - Discharge Summary Sheet db Forms: - Medication Reconciliation Form sp3 - Antibiotic Education sp3 - Prescription Opioid Use sp3 - Patient Portal Instructions sp3 - Leadership Thank You Letter sp3 - Work release form db Signatures: Dispatcher [employer] Trina Manriquez RN RN iw Lina Morales MD MD sp3 Faviola Martinez RN RN db Corrections: (The following items were deleted from the chart) 10:48 10:48 BASIC METABOLIC PANEL+C.LAB.BRZ ordered. EDMS EDMS 10:48 10:48 CBC+H.LAB.BRZ ordered. EDMS EDMS 10:48 10:48 HEPATIC FUNCTION+C.LAB.BRZ ordered. EDMS EDMS 10:48 10:48 MAGNESIUM+C.LAB.BRZ ordered. EDMS EDMS 10:48 10:48 PROBNP+C.LAB.BRZ ordered. EDMS EDMS 10:48 10:48 PROTIME (+INR)+COAG.LAB.BRZ ordered. EDMS EDMS 10:48 10:48 Troponin High Sensitivity+C.LAB.BRZ ordered. EDMS EDMS 10:48 10:48 Chest Single View+RAD.RAD.BRZ ordered. EDMS EDMS 10:48 10:48 Head Brain Wo Cont+CT.RAD.BRZ ordered. EDMS EDMS
[2025-03-26 12:50] VITALS: O2SAT 100
[2025-03-26 12:53] VITALS: BP 163/90
== END 2025-03-26 12:45 | disposition home or self-care (01) ==
LOC: ER 10:34
DX: I16.0 Hypertensive urgency (principal)
CPT/HCPCS: 36415; 70450; 71045; 80048; 80076; 83735; 83880; 84484; 85025; 85610; 93005; 96374; 96375; 99285; J0360